=== PATIENT | male | born 1940 | race Caucasian/White ===

== ENCOUNTER 2017-05-30 17:58 | Observation (INO) | payer MEDICARE ==
[~2017-05-30] VITALS: Ht 177.8 cm; Wt 79.5 kg
--- NOTE | ~2017-05-30 | ER ---
ADMIT: 05/30/2017 RM/LOC: 6[facility] MR#: [id number] [address] [place], [place] [address] VIDHI JULIEN RANIER [address] [place] [address] Emergency Room Report SEX: M AGE: 76 : 1940 DATE: 05/30/2017 ADDENDUM: A 76-year-old patient was checked out to me by Dr. Fabian with results of CT of the abdomen and pelvis and laboratory results pending. His CBC and chemistries were unremarkable. He had a troponin done which was also normal. His CT abdomen and pelvis showed some abnormal findings which consisted of abnormal loops of bowel. Discussion with Dr. Paul Chapman, my radiologist, thinks this is either ileus versus obstruction versus gastroenteritis. There was some swelling of the mesentery which raises the possibility of internal hernia, although no devitalized segment of bowel is identified on the exam. With his exam of his abdomen which seems to be improving and his normal labs, I think this is less likely the case. I did discuss the case with Dr. Perez, and at this point, did not seem like this would be a surgical issue. I do not believe the patient is ready to be discharged home as he was traveling across country and is still over 1500 miles from the home. At this point, we will be bringing the patient in observation with bowel rest, IV fluids, and pain control. I spoke to Dr. Reynolds, who is on for [facility], who graciously agrees to bring the patient into his service. DIAGNOSES: 1. Abdominal pain. 2. Partial early small bowel obstruction. 3. Nausea, vomiting, and diarrhea. Ivan Gaona MD/ tammie JOB #: [id number] CC: Yohan Reynolds MD, Attending Physician Yohan Reynolds MD, Family Physician
[2017-06-01] MEDS ORDERED: ISOPTIN DPS120 MG PO (19:47)
[2017-06-01] MEDS ORDERED: DIVALPROEX SOD250 MG PO (19:47)
[2017-06-01] MEDS ORDERED: ZOFRAN ODT8 MG PO (19:48)
--- NOTE | 2017-06-02 09:06 | HP ---
ADMIT: 05/30/2017 RM/LOC: 619 [facility] MR#: [id number] [address] [facility] [address] [place], [place] [address] [facility] JULIEN [facility] [address] [place] [address] History and Physical SEX: M AGE: 76 : 1940 DATE OF SERVICE: 05/31/2017 CHIEF COMPLAINT: Abdominal pain, nausea, vomiting, diarrhea. HISTORY OF PRESENT ILLNESS: Yair is a very pleasant, 76-year-old male, who presented to [facility] Emergency Department on the evening of 05/30/2017 with less than 24 hours of crampy abdominal pain, bloating, one episode of vomiting and diarrhea. Yair actually reports that [place] [address] [place] back to his home in [place] after visiting his family in [place], when he had to kidney puller to one of the nearby rest area due to intensifying crampy abdominal pain. He reports throughout the rest area, he had an episode of vomiting and diarrhea. He reports that his pain, bloating, and GI symptoms had started in the preceding 12 to 24 hours. He reports that he was in [place], [place] on Sunday evening of 05/29/2017, and had dinner at the [employer], and within several hours of eating this meal, he started having some of these escalating symptoms. He decided to come in to the [place] ER due to his pain, nausea, vomiting, diarrhea. PAST MEDICAL HISTORY: Otherwise, unremarkable. He does take couple medications for what he describes as very likely to be BPPV, though he cannot articulate why he takes those for sure. PAST SURGICAL HISTORY: He denies any major surgeries with the exception of a tonsillectomy and adenoidectomy. MEDICATIONS: He takes Depakote and verapamil for his vertigo. ALLERGIES: HE HAS NO KNOWN MEDICAL ALLERGIES. SOCIAL HISTORY: He is a nonsmoker. Denies any alcohol or recreational drug use. He is a . His in October. He has family in [place]. He reports he was making the [address] to go visit family and was incrementally making his way back home to [place] when this illness hit. FAMILY HISTORY: Noncontributory. REVIEW OF SYSTEMS: As per HPI. All others reviewed and were negative. PHYSICAL EXAMINATION: VITAL SIGNS: His blood pressure is 108/62, pulse 84, respirations 18, temp 98.9, O2 saturation is 95% room air. GENERAL: He is awake, alert, no acute distress. Comfortable in the hospital bed. HEENT: Normocephalic and atraumatic. HEART: Regular rate and rhythm. No murmurs, gallops, or rubs. LUNGS: Clear to auscultation bilaterally. ABDOMEN: Mildly distended. Nontender and soft. He has normoactive bowel sounds. LABORATORY AND X-RAY DATA: CBC this morning shows a white count of 5.7, ADMIT: 05/30/2017 RM/LOC: 619 [facility] MR#: [id number] [address] [facility] [address] [place] [id number] [facility] [address] [place] [address] History and Physical SEX: M AGE: 76 : 1940 hemoglobin 14.6, platelet count 156. CMP shows sodium 144, potassium 3.9, chloride 114, CO2 of 22, BUN 18, glucose 107, creatinine 1, calcium 8, amylase and lipase are both negative. LFTs are unremarkable. CT of his abdomen and pelvis done down in the ER, shows some abnormal loops of bowel ileus versus obstruction versus gastroenteritis, possible swelling of the mesentery. ASSESSMENT: Acute gastroenteritis, likely food related. PLAN: He seems to be doing a little better today. I am going to TKO his IV fluids. We will start him on a clear liquid diet. Advance as tolerated. We will see how the nausea and vomiting go. We will need to ensure that he can maintain hydration before he goes anywhere. With him about to get in the car and travel several more hours to get home, we will also need to ensure that he is not having diarrhea every 1-2 hours, as clear that would not be conducive to a prolonged car ride. Anticipate that we will be discharging him probably within the next 24 hours. Yohan Reynolds MD/ tammie JOB #: [id number] CC: Yohan Reynolds, Attending Physician Yohan Reynolds, Family Physician
== END 2017-05-31 16:25 | disposition home or self-care (01) ==
LOC: ER 17:58 → 6PED 21:18
PROVIDERS: ADMIT Family Medicine
DX: K52.9 Noninfective gastroenteritis and colitis, unspecified (principal); Z79.899 Other long term (current) drug therapy; Z98.890 Other specified postprocedural states